=== PATIENT | female | born 1990 | race Caucasian/White ===

== ENCOUNTER 2018-04-08 13:53 | Emergency (ER) | payer OTHER ==
[2018-04-08 14:25] VITALS: BP 113/68; PULSE 93; RESP 18; TEMP 98.5
[2018-04-08] MEDS ORDERED: IBUPROFEN 600 MG TAB PO STA (14:41)
--- NOTE | 2018-04-08 14:49 | ED ---
Skin/Abscess/FB HPI - General Chief complaint: Skin/Abscess/Foreign Body Stated complaint: Abcess on hand Time Seen by Provider: 04/08/18 14:16 Source: patient, RN notes reviewed Mode of arrival: ambulatory Limitations: no limitations - History of Present Illness Initial comments: This is a 28-year-old female who presents to the emergency department with chief complaint of left hand abscess. Patient is a resident at [facility]. Patient states that she developed an abscess on her left hand on Saturday. She states that they placed her on Keflex on . Patient states that the abscess has gotten larger and progressively more painful. She was sent here to the emergency department for I&D. Patient states that she does have a history of abscesses but denies MRSA infections. Denies fevers or chills, chest pain or shortness breath, abdominal pain, nausea or vomiting. - Related Data Allergies Allergy/AdvReac Type Severity Reaction Status Date / Time Sulfa (Sulfonamide Allergy Rash/Hives Verified 04/08/18 14:26 Antibiotics) Review of Systems ROS Statement: Those systems with pertinent positive or pertinent negative responses have been documented in the HPI. ROS Other: All systems not noted in ROS Statement are negative. Past Medical History Past Medical History: No Reported History Additional Past Medical History / Comment(s): in [place] for drug abuse, cocaine and opiates History of Any Multi-Drug Resistant Organisms: None Reported Past Surgical History: No Surgical Hx Reported Past Psychological History: Depression Smoking Status: Current every day smoker Past Alcohol Use History: None Reported Past Drug Use History: Cocaine, Heroin, Opiates General Exam - General Exam Comments Initial Comments: General: Awake and alert, well-developed; in mild distress due to pain. HEENT: Head atraumatic, normocephalic. Pupils are equal, round and reactive to light. Extraocular movements intact. Oropharynx moist without erythema or exudate. Neck: Supple. Normal ROM. Cardiovascular: Regular rate and rhythm. No murmurs, rubs or gallops. Chest symmetrical. Respiratory: Lungs clear to auscultation bilaterally. No wheezes, rales or rhonchi. Normal respiratory effort with no use of accessory muscles. Musculoskeletal: Normal ROM bilateral upper and lower extremities. Ambulating normally. Skin: Approximately 2.0 cm in diameter abscess to the left dorsal hand. Tender , fluctuant and erythematous. Neurological: Alert and oriented x3. CN II-XII grossly intact. Speech is fluent and answers are appropriate. No focal neuro deficits. Psychiatric: Normal mood and affect. No overt signs of depression or anxiety noted. Limitations: no limitations Course Vital Signs 04/08/18 14:18 Temperature 98.5 F Pulse Rate 93 Respiratory 18 Rate Blood Pressure 113/68 O2 Sat by Pulse 99 Oximetry Procedures - Incision & Drainage Consent Obtained: verbal consent Indication: Abscess Site: hand (Left dorsal hand) Size (cm): 2 Anesthetic Used: lidocaine 1% Amount (mLs): 1 I&D Cleaning Method: Chloroprep Scalpel Used: #11 I&D Drainage Obtained: Pus, Blood Culture Obtained?: Yes Patient Tolerated Procedure: well, no complications Medical Decision Making - Medical Decision Making This is a 28-year-old female who presents to the emergency department with chief complaint of left hand abscess. I&D of the abscess was performed. Patient tolerated well without complication. Aerobic wound culture is pending. Vital signs are stable and she is in acute distress. Reports no fevers or chills. Patient will be discharged back to [facility] at this time. Recommended warm compresses and continuing course of Keflex that she is currently taking. Patient is in agreement with plan and voices understanding. All questions were answered. Disposition Clinical Impression: Abscess of left hand Disposition: HOME SELF-CARE Condition: Good Instructions: Abscess Incision and Drainage (ED), Abscess (ED) Additional Instructions: Please continue and finish the course of Keflex. Please apply warm compresses frequently. Please follow up with primary care provider within 1-2 days. Return to emergency department if symptoms should worsen or any concerns arise. Is patient prescribed a controlled substance at d/c from ED?: No Referrals: Silver Vicente DO [Primary Care Provider] - 1-2 days Time of Disposition: 14:49
== END 2018-04-08 15:20 | disposition home or self-care (01) ==
LOC: EC 13:53
DX: L02.512 Cutaneous abscess of left hand (principal); F17.200 Nicotine dependence, unspecified, uncomplicated; Z88.2 Allergy status to sulfonamides
CPT/HCPCS: 10060; 87070; 87205; 99283